=== PATIENT | male | born 1985 | race African-American/Black ===

== ENCOUNTER 2016-05-15 10:26 | Emergency (ER) | payer SELFPAY ==
[~2016-05-15] VITALS: Ht 180.3 cm; Wt 75.0 kg
[2016-05-15 10:28] VITALS: BP 144/78
== END 2016-05-15 15:13 | disposition left against medical advice (07) ==
LOC: ER 11:36
DX: M79.659 Pain in unspecified thigh (principal); V49.9XXA Car occupant (driver) (passenger) injured in unspecified traffic accident, initial encounter; Y93.89 Activity, other specified; Y92.89 Other specified places as the place of occurrence of the external cause; Y99.8 Other external cause status

== ENCOUNTER 2017-04-30 12:40 | Emergency (ER) | payer MEDICAID ==
[~2017-04-30] VITALS: Ht 193 cm; Wt 72.0 kg
[2017-04-30] MEDS ORDERED: ACETAMINOPHEN 325MG TABLET PO STA (14:06)
[2017-04-30 16:35] LABS: CHLORIDE 105 mEq/L (98-107)
[2017-04-30 16:37] LABS: BASOPHILS % 0.7 % (0.0-2.0); EOSINOPHILS % 2.8 % (0.0-5.0); HEMATOCRIT. 46.1 % (42.0-52.0); HEMOGLOBIN. 15.5 g/dL (14.0-18.0); INR 1.1; LYMPHOCYTES % 36.9 % (20.0-50.0); MEAN CORPUSCULAR HEMOGLOBIN 27.8 pg (28.0-32.0); MEAN PLATELET VOLUME 8.5 fl (7.4-10.4); MONOCYTES % 10.2 % (2.0-8.0); NEUTROPHILS % 49.4 % (40.0-76.0); PLATELET 245 x1000/uL (130-400); PROTHROMBIN TIME 11.5 sec (9.4-11.6); RED BLOOD CELL COUNT 5.55 mill/uL (4.7-6.1); RED CELL DISTRIBUTION WIDTH 13.4 % (11.6-14.6)
[2017-04-30 16:53] LABS: CLARITY URINE CLEAR (CLEAR); COLOR URINE YELLOW (YELLOW); KETONES URINE NEGATIVE (NEGATIVE); LEUKOCYTE ESTERASE URINE NEGATIVE (NEGATIVE); NITRITE URINE NEGATIVE (NEGATIVE); OCCULT BLOOD URINE NEGATIVE (NEGATIVE); PROTEIN URINE NEGATIVE (NEGATIVE); SPECIFIC GRAVITY URINE 1.018 (1.005-1.030); UROBILINOGEN URINE 0.2 E.U./dL (0.2-1.0)
[2017-04-30 18:04] VITALS: BP 125/75
== END 2017-04-30 18:06 | disposition home or self-care (01) ==
LOC: ER 13:43
DX: S60.222A Contusion of left hand, initial encounter (principal); S60.221A Contusion of right hand, initial encounter; R10.9 Unspecified abdominal pain; M54.2 Cervicalgia; W19.XXXA Unspecified fall, initial encounter; Y93.89 Activity, other specified; Y99.8 Other external cause status; Y92.89 Other specified places as the place of occurrence of the external cause
CPT/HCPCS: 36415; 73130; 80053; 81003; 83690; 85025; 85610; 99285